=== PATIENT | female | born 1950 | race Caucasian/White ===

== ENCOUNTER 2023-03-31 12:08 | Inpatient (IN) | payer MEDICARE, BC, OTHER, SELFPAY ==
[2023-03-31] VITALS (17 sets, daily range): BP systolic 127–190; BP diastolic 43–101; PULSE 62–95; RESP 18–19; TEMP 36.4–37.1; O2SAT 94–100
--- NOTE | 2023-03-31 12:33 | DI.RAD_ITS ---
Exam(s) XR ANKLE LT 2V EXAM: XR ANKLE LT 2V CLINICAL HISTORY: L ankle deformity. TECHNIQUE: 2D digital imaging was performed. COMPARISON: No exams were available for comparison FINDINGS: Two views There is significantly displaced by malleolar fracture of the ankle. There may also be a subtle nond isplaced posterior malleolus fracture.. Talar dome appears intact. Fifth metatarsal base appears in tact. IMPRESSION: Severe by malleolar ankle fracture with significant displacement. Possible also nondisplaced posteri or malleolus fracture. DATA REPOSITORY: RADIATION DOSE DELIVERED:
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
--- NOTE | 2023-03-31 15:00 | DI.RAD_ITS ---
Exam(s) XR ANKLE LT COMPLETE EXAM: XR ANKLE LT COMPLETE CLINICAL HISTORY: FRACTURE S/P REDUCTION TECHNIQUE: 2D digital imaging was performed of the left ankle. Three images were obtained. AP, lat eral and oblique views were obtained. COMPARISON: CR XR ANKLE LT 2V from 03/31/2023 FINDINGS: BONES: There is again seen a bimalleolar fracture dislocation. There has been improvement of the pos terior dislocation component of the fracture however there is persistent lateral subluxation of the t alus relative to the tibia. There is also persistent lateral dislocation angulation of both the dist al fibular and medial malleolar fractures. No new fracture is identified. No bony destructive lesio n is seen. JOINTS:There is lateral subluxation of the talus relative to the tibia. SOFT TISSUE: There is soft tissue swelling about the ankle. IMPRESSION: Left ankle fracture dislocation as described. DATA REPOSITORY: RADIATION DOSE DELIVERED:
[2023-03-31] MEDS: Ondansetron 4 MG/2 ML VIAL IVP (15:01)
[2023-03-31] MEDS: Propofol 200 MG/20 ML VIAL 100 MG IVP (15:01)
[2023-03-31] MEDS: fentaNYL 100 MCG/2 ML VIAL 50 MCG IVP (15:02)
[2023-03-31 15:03] LABS: Abs Immature Grans 0.05 10^3/uL (0.0-0.06); Absolute Basophil Count 0.14 10^3/uL (0.0-0.2); Absolute Eosinophil Count 0.09 10^3/uL (0.0-0.7); Absolute Lymphocyte Count 1.59 10^3/uL (1.2-3.4); Absolute Monocyte Count 0.59 10^3/uL (0.1-0.8); Basophils % 1.1; Eosinophils % 0.7; HCT 44.5 % (36.0-46.0); HGB 14.4 g/dL (11.2-15.7); Immature Grans % 0.4; Lymphocytes % 12.2; MCH 28.3 pg (27.0-33.0); MCHC 32.4 % (32.0-36.0); MCV 87 fL (80-95); Monocytes % 4.5; Neutrophils % 81.1; RBC 5.09 10^6/uL (3.93-5.22); RDW 13.5 % (11.7-14.6); RDW-SD 43.8 fL; WBC 13.07 10^3/uL (4.4-10.8)
[2023-03-31 15:12] LABS: Prothrombin Time 10.1 sec (9.1-11.1)
[2023-03-31 15:16] LABS: ALT 30 U/L (14-59); AST 27 U/L (15-37); Alkaline Phosphatase 52 U/L (46-116); Anion Gap 8.6 mmol/L (3-11); BUN 20 mg/dL (7-18); Bilirubin, Total 0.5 mg/dL (0.2-1.0); CO2 26.4 mmol/L (21.0-32.0); Calcium 9.7 mg/dL (8.5-10.1); Chloride 106 mmol/L (98-107); Diff Comment PLT Morph Reviewed; Estimated GFR 59.49 (mL/min/1.73m2); Glucose 107 mg/dL (74-106); RBC Morphology Normal; Sodium 141 mmol/L (136-145); Total Protein 7.7 g/dL (6.4-8.2)
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
--- NOTE | 2023-03-31 15:26 | NUR.NOTE ---
Nursing Note: Patient signs consent for procedure. time out performed at 1450 with MD, PA, RT staff and this RN present. Medications given as ordered. Procedure lasted 9mins. Patient tolerated meds well. VS WNL at this time see chart.
--- NOTE | 2023-03-31 15:28 | RESPIRATORY ---
RT present for conscious sedation. NC w/EtCO2 monitoring placed on patient, ambu bag and nasal trumpet at bedside if needed. During procedure patient SpO2 98-100% on RA, RR 20, EtCO2 30-34 and HR 70.
[2023-03-31] MEDS: Propofol 200 MG/20 ML VIAL IVP (17:12)
--- NOTE | 2023-03-31 17:36 | DI.RAD_ITS ---
Exam(s) XR FLOURO OR C-ARM <1 HR EXAM: XR FLOURO OR C-ARM <1 HR CLINICAL HISTORY: ankle reduction TECHNIQUE: 2D and realtime digital imaging was performed. CONTRAST MATERIAL: Refer to procedure report. COMPARISON: CR XR ANKLE LT COMPLETE from 03/31/2023 FINDINGS: Fluoroscopy was provided for Dr. De La O during the performance of a left ankle reduction. Please re timo to the procedure report for complete details. Fluoroscopic images show successful reduction of t he left ankle fracture dislocation. Ka,r=0.03 mGy IMPRESSION: RADIATION DOSE DELIVERED:
--- NOTE | 2023-03-31 17:45 | DI.CT_ITS ---
Exam(s) CT LOWER EXTREMITY LT WO EXAM: CT LOWER EXTREMITY LT WO CLINICAL HISTORY: L ankle fracture dislocation, ?posterior tibia fx. TECHNIQUE: Imaging Protocol: Axial computed tomography images with coronal and sagittal reformatted images were created and reviewed. COMPARISON: CR XR ANKLE LT COMPLETE from 03/31/2023 CR XR FLOURO OR C-ARM <1 HR from 03/31/2023 CR XR ANKLE LT 2V from 03/31/2023 FINDINGS: Bones: There is a trimalleolar fracture present. There is a comminuted mildly displaced fracture of the posterior malleolus. There is an oblique fracture of the distal fibula at the level of the ankl e joint. There is posterior and lateral displacement of the distal fracture with overriding of the f racture fragments. There is a comminuted mildly displaced fracture of the medial malleolus. The fra cture is displaced 1/2 shaft's with laterally. There is lateral subluxation of the talus relative to the tibia. No cellulitic or osteomyelitic changes are identified. No lytic or sclerotic lesions ar e identified. Soft Tissues: There is soft tissue swelling present. IMPRESSION: There is a trimalleolar fracture of the left ankle. There is lateral subluxation of the talus relati ve to the tibia. RADIATION DOSE DELIVERED: 262.02mGy.cm Total DLP 262.02mGy.cm Total DLP DATA REPOSITORY: All CT scans at this facility are submitted to the National Radiology Data Registry (NRDR) Dose Index Registry (DIR) with the [employer] (A[employer]). RADIATION OPTIMIZATION: All CT scans at this facility use at least one of these dose optimization te chniques: automated exposure control; mA and/or kV adjustment per patient size (includes targeted exa ms where dose is matched to clinical indication); or iterative reconstruction.
--- NOTE | 2023-03-31 19:29 | DI.VRAD_ITS ---
PROCEDURE INFORMATION: Exam: CT Left Lower Extremity With Contrast, Ankle Exam date and time: 03/31/2023 6:51 PM Age: 72 years old Clinical indication: Injury or trauma; Fall; Fracture, traumatic; Other: L ankle fracture dislocation, ? posterior tibia FX; Left; Malleolus, lateral and malleolus, medial TECHNIQUE: Imaging protocol: CT of the left lower extremity with intravenous contrast was performed. Exam focused on the ankle. COMPARISON: CR XR ANKLE LT COMPLETE 03/31/2023 4:35 PM FINDINGS: Bones/joints: Trimalleolar ankle fracture. There is a displaced fracture of the medial malleolus with a transverse fracture plane at its base. There is a displaced oblique fracture of the distal fibular metaphysis. There is a posterior tibial malleolus fracture. There is medial subluxation of the tibia on the talus of 8 mm. There is no talar fracture evident. Calcaneus is unremarkable. Midfoot structures without acute traumatic disruption. Soft tissues: Soft tissue swelling. IMPRESSION: Trimalleolar fracture of the left ankle with subluxation of the tibia medially on the talus of 8 mm. Eversion injury fracture appearance with displaced oblique distal fibular fracture and transverse medial malleolar fracture. Posterior tibial malleolus mildly comminuted and mildly displaced fracture. Dictated and Authenticated by: Dev Franco MD. Ordering:SERGEI Trevino MD
[2023-03-31] MEDS: Acetaminophen 500 MG TAB 1000 MG PO (19:56)
[2023-03-31] MEDS: Normal Saline Flush 10 ML SYR IVP (19:56)
[2023-03-31] MEDS: traMADol 50 MG TAB PO (22:06)
[2023-04-01] VITALS (16 sets, daily range): BP systolic 118–162; BP diastolic 49–79; PULSE 66–82; RESP 14–20; TEMP 35.2–36.7; O2SAT 92–98; BMI 27.6
[2023-04-01] MEDS: Lactated Ringers 1,000 ML 80 ML IV (05:51)
[2023-04-01] MEDS: traMADol 50 MG TAB PO (06:18)
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
[2023-04-01] MEDS: Ondansetron 4 MG/2 ML VIAL IVP (09:51)
[2023-04-01] MEDS: Normal Saline Flush 10 ML SYR IVP (09:51)
--- NOTE | 2023-04-01 10:36 | W.ANESPRE ---
General Info Date of Service Date Performed: 04/01/23 Height: 5 ft 2 in Weight: 68.353 kg Body Mass Index (BMI): 27.6 Surgical Procedure: Operation Date: 04/01/23 13:40 Proposed Procedure Side Surgeon p Ankle ORIF Left Uriel Arora MD Meds Allergies and Home Medications Allergies Allergy/AdvReac Type Severity Reaction Status Date / Time Penicillins Allergy Severe rash Unverified 03/31/23 12:25 Home Medication Medication Instructions Recorded levothyroxine 50 mcg tablet 50 mcg PO DAILY 03/31/23 (Euthyrox) levothyroxine 75 mcg tablet 75 mcg PO DAILY 03/31/23 (Euthyrox) metformin 500 mg tablet 500 mg PO BID 03/31/23 simvastatin 40 mg tablet 40 mg PO DAILY 03/31/23 Current Visit Medications: Current Medications Generic Name Dose Route Start Last Admin Trade Name Freq PRN Reason Stop Dose Admin Acetaminophen 1,000 mg 03/31/23 20:00 04/01/23 09:52 Acetaminophen 500 Mg Tab PO Not Given TID [facility] Dextrose 0 gm 03/31/23 17:56 Glucose Oral Gel 15 Gm/37.5 Gm Tube PO DIRECTED PRN Dextrose/Water 0 gm 03/31/23 17:56 Dextrose 50%-Water 25 Gm/50 Ml Syr IVP DIRECTED PRN Hydromorphone HCl 0.5 mg 03/31/23 17:56 Hydromorphone 2 Mg/Ml Syr IVP Q2H PRN PRN Ringer's Solution 1,000 mls @ 80 mls/hr 04/01/23 06:00 04/01/23 05:51 IV 80 mls/hr INFUSION [facility] Administration Insulin Aspart 0 units 03/31/23 17:56 04/01/23 09:51 Insulin Aspart 300 Units/3 Ml Pen SC Not Given 0800,1200,1700 [facility] Protocol Levothyroxine Sodium 75 mcg 04/01/23 06:00 04/01/23 05:34 Levothyroxine 75 Mcg Tab PO Not Given DAILY@0600 [facility] Metformin HCl 500 mg 03/31/23 20:00 04/01/23 09:52 Metformin 500 Mg Tab PO Not Given BID [facility] Ondansetron HCl 4 mg 03/31/23 17:56 04/01/23 09:51 Ondansetron 4 Mg/2 Ml Vial IVP 4 mg Q6H PRN PRN Administration Nausea Simvastatin 20 mg 04/01/23 08:30 04/01/23 09:52 Simvastatin 20 Mg Tab PO Not Given DAILY [facility] Sodium Chloride 0 ml 03/31/23 20:00 04/01/23 09:51 Normal Saline Flush 10 Ml Syr IVP 10 ml BID [facility] Administration Tramadol HCl 50 mg 03/31/23 17:56 04/01/23 06:18 Tramadol 50 Mg Tab PO 50 mg Q4H PRN PRN Administration Pain PFSH Active Problems Active Problems: Problem Status Onset Code Closed fracture dislocation of left ankle S82.892A Vital Signs and Lab Results Vital Signs Most Recent Vital Signs in EMR: Most Recent Vital Signs Temp Pulse Resp BP Pulse Ox 36.5 C 66 16 162/72 H 98 04/01/23 07:12 04/01/23 07:12 04/01/23 07:12 04/01/23 07:12 04/01/23 07:12 Point of Care Results Point of Care Results: Finger Stick Blood Glucose 110 04/01/23 08:18 Lab Results 03/31/23 14:40 03/31/23 14:40 Blood Type / Crossmatch: Patient ABO/Rh A Negative 03/31/23 Antibody Screen NEGATIVE 03/31/23 Complete Blood Count: White Blood Count 13.07 10^3/uL (4.4-10.8) H 03/31/23 14:40 Red Blood Count 5.09 10^6/uL (3.93-5.22) 03/31/23 14:40 Hemoglobin 14.4 g/dL (11.2-15.7) 03/31/23 14:40 Hematocrit 44.5 % (36.0-46.0) 03/31/23 14:40 Platelet Count 10^3/uL (130-400) 03/31/23 14:40 Complete Metabolic Panel: Sodium 141 mmol/L (136-145) 03/31/23 14:40 Potassium 4.0 mmol/L (3.5-5.1) 03/31/23 14:40 Chloride 106 mmol/L (98-107) 03/31/23 14:40 Carbon Dioxide 26.4 mmol/L (21.0-32.0) 03/31/23 14:40 BUN 20 mg/dL (7-18) H 03/31/23 14:40 Creatinine 1.0 mg/dL (0.55-1.02) 03/31/23 14:40 Est GFR (CKD-EPI 2020) 59.49 (mL/min/1.73m2) 03/31/23 14:40 Calcium 9.7 mg/dL (8.5-10.1) 03/31/23 14:40 Albumin 4.0 g/dL (3.4-5.0) 03/31/23 14:40 Glucose 107 mg/dL (74-106) H 03/31/23 14:40 Liver Function Panel: Alanine Aminotransferase (ALT/SGPT) 30 U/L (14-59) 03/31/23 14:40 Aspartate Amino Transf (AST/SGOT) 27 U/L (15-37) 03/31/23 14:40 Coagulation Panel: INR International Normalized Ratio 1.0 (0.9-1.1) 03/31/23 14:40 Prothrombin Time 10.1 sec (9.1-11.1) 03/31/23 14:40 Cardiac Panel: No Data to Display Arterial Blood Gas: No Data to Display Venous Blood Gas: No Data to Display Pancreas Panel: No Data to Display Thyroid Panel: No Data to Display Infectious Disease: No Data to Display Blood Cultures: No Data to Display Toxicology Panel: No Data to Display Anesthesia Assessment and Plan Anesthesia History Personal History: PONV and Delayed Emergence Family History: No Family History of Anesthesia Complications Exercise Tolerance Exercise Tolerance: Metabolic Equivalents>4 Pertinent Negatives Pertinent Negatives: No Symptoms of GERD, No Major Cardiovascular Symptoms or Complaints, No Major Pulmonary Symptoms or Complaints and No History of CVA/TIA Cardiac & Pulmonary Exam Cardiac Exam: Normal S1/S2 Heart Sounds Pulmonary Exam: Clear Bilateral Breath Sounds Implantable Cardiac Device Does patient have a Pacemaker or an ICD?: No Airway Exam Known Difficult Airway: No Mallampati Class: 3 Mouth Opening: Narrow (< 3cm) Thyromental Distance: Less than 3 cm Neck Range of Motion: Full ROM Neck Circumference: Thick Teeth Condition: Normal Dentition ASA Classification ASA Score: ASA 2 Emergency Case?: No NPO Status NPO Status: NPO Clears >2 hours, Solids >8 hours Anesthesia Plan Resuscitation Status: Full Code Anesthesia Technique: General Anesthesia Airway Planned: Endotracheal Tube Pain Management: Surgeon and patient request nerve block Monitors Used: Standard Monitors Preoperative Comments:: 72 yo female with left ankle fracture to OR for ORIF. Sig PMHx: denies major cardiac/pulmonary, DM (on metformin, states it is pre), hypothyroid (stable on replacement). Pain is currently well controlled without movement, she is complaining of nausea and she is anxious.
--- NOTE | 2023-04-01 12:30 | NUR.NOTE ---
Pt Transfered to PACU via hospital bed prior to surgery. Report given to PACU nurse at 1225.
[2023-04-01] MEDS: ceFAZolin 2 GM/50 ML BAG IVPB (13:15)
--- NOTE | 2023-04-01 13:16 | PGE_ITS ---
Date of Service Date of service: 04/01/23 Time of Service: 07:20 Assessment and Plan Assessment and plan (1) Closed fracture dislocation of left ankle: Status: Acute Assessment and plan: Kalie is a 72-year-old who suffered a left ankle fracture dislocation. This is a highly unstable injury and needs surgical fixation. CT scan does show there is some fragmentation of the posterior malleolus. I will look at this during surgery although my intention would be to make sure there is no impinged fragments and not fix. This will be investigated during the surgery. I review ed the surgical details with Akira. I discussed the risks include bleeding, infection, pain, stiffness, damage to nerves and vessels, damage to muscle and tendons, hardware prominence, hardware failure, malunion, nonunion. Despite these risk, she elects to proceed. She has been NPO. Qualifiers: Encounter type: initial encounter Qualified Code(s): S82.892A - Other fracture of left lower leg, initial encounter for closed fracture Subjective Subjective Interval history since last seen: Kalie reports having some increase in pain last night as she was transferring off the CT scanner. She did take tramadol twice. She feels this helped out the pain but has left her somewhat feeling clouded and slightly nauseous. No acute changes otherwise. No fevers no chills. No chest pain or shortness of breath. Exam Narrative Exam Narrative: Sitting up in the hospital bed. No acute distress. Alert and x 3. Breathing comfort without audible wheezing or stress. Left lower extremities within the splint. Cap refill less than 2 seconds. Sensation intact to light touch over the deep and superficial peroneal nerve and tibial nerve. Objective Last Vital Signs Temp 36.6 C 04/01/23 12:12 Pulse 79 04/01/23 12:12 Resp 16 04/01/23 12:12 BP 147/76 H 04/01/23 12:12 Pulse Ox 97 04/01/23 12:12 Laboratory Results - last 24 hr 03/31/23 14:40 WBC 13.07 H RBC 5.09 Hgb 14.4 Hct 44.5 MCV 87 MCH 28.3 MCHC 32.4 RDW 13.5 Plt Count MPV Immature Gran % 0.4 Neutrophils % 81.1 Lymphocytes % 12.2 Monocytes % 4.5 Eosinophils % 0.7 Basophils % 1.1 Nucleated RBC % 0.0 Absolute Neutrophils 10.60 H Absolute Lymphocytes 1.59 Absolute Monocytes 0.59 Absolute Eosinophils 0.09 Absolute Basophils 0.14 RBC Morphology Normal PT 10.1 INR 1.0 Sodium 141 Potassium 4.0 Chloride 106 Carbon Dioxide 26.4 Anion Gap 8.6 BUN 20 H Creatinine 1.0 Est GFR (CKD-EPI 2020) 59.49 Glucose 107 H Calcium 9.7 Total Bilirubin 0.5 AST 27 ALT 30 Alkaline Phosphatase 52 Total Protein 7.7 Albumin 4.0 Patient ABO/Rh A Negative Antibody Screen NEGATIVE Objective Narrative Objective Narrative: CT scan of the left ankle shows a slightly laterally displaced talus. There is a transverse type fracture about the medial malleolus which is displaced into the joint with some small fragmentation seen over the anteromedial corner of the joint. There is also a posterior malleolar fracture with some comminution. The fibula is shortened and laterally displaced with a oblique fracture line, Gennaro Bertrand. Time Spent with Patient Time Spent with Patient: <25 minutes Time was spent: obtaining and/or reviewing separately otained hiistory and counseling the patient
[2023-04-01] MEDS: Normal Saline 100 ML 360 ML (13:37)
[2023-04-01] MEDS: Tranexamic Acid 1,000 MG/10 ML VIAL 1000 MG (13:37)
--- NOTE | 2023-04-01 13:58 | W.ANESNERVE ---
Nerve Block Single Injection Procedure Date and Time Date Performed: 04/01/23 Procedure Start: 12:54 Location Where Procedure Performed Procedure Location: PACU Reason Performed: Postoperative Analgesia Requesting Provider: Uriel Arora Timeout Performed Timeout Performed: Yes Monitoring Used ECG, Blood Pressure and SpO2 Sterility Sterility: Hand Hygiene, Surgical Cap, Surgical Mask, Sterile Gloves and Chlorhexidine Sedation Given During Procedure Sedation Given (Indicate Dose Given): Versed IV Dose:: 2mg Patient Mental Status Patient Mental Status: Sedate with meaningful communication Nerve Block 1st Nerve Block: Laterality: Left Block Type: Adductor Canal Ultrasound Image Saved?: Yes Needle / Catheter Used: 100mm SonoPlex II Local Anesthetic Bolus (Indicate Dose Given): Lidocaine used for local infiltration of skin and Bupivacaine 0.25% Dose:: 10mL Additives (Indicate Dose Given): None Ultrasound: Sterile probe cover and gel used Nerve Stimulator: Supplement to Ultrasound use and No twitch or parasthesia noted < 0.5 mA Paresthesia: None Procedure Tolerated: No Complications and Patient tolerated well Procedure Outcome: Successful Performed By: Zo Russ Supervised By: Kvng Bae 2nd Nerve Block: Laterality: Left Block Type: Popliteal Sciatic Ultrasound Image Saved?: Yes Needle / Catheter Used: 100mm SonoPlex II Local Anesthetic Bolus (Indicate Dose Given): Lidocaine used for local infiltration of skin Additives (Indicate Dose Given): None Ultrasound: Sterile probe cover and gel used Nerve Stimulator: Supplement to Ultrasound use and No twitch or parasthesia noted < 0.5 mA Paresthesia: None Procedure Tolerated: No Complications and Patient tolerated well Procedure Outcome: Successful Performed By: Kvng Bae
--- NOTE | 2023-04-01 14:29 | CHAPLAIN ---
Kalie was sitting up in bed when I visited. She told me about her fall and broken ankle requiring surgery later today. She was she was anxious as she waits for her surgery, but knew that when her arrives she'll feel more calm. She is from [place], but has a second home here. She was expecting her son and any time.
--- NOTE | 2023-04-01 14:30 | DI.RAD_ITS ---
Exam(s) XR ANKLE LT 2V EXAM: XR ANKLE LT 2V CLINICAL HISTORY: LEFT ANKLE FRACUTRE TECHNIQUE: 2D and realtime digital imaging was performed. CONTRAST MATERIAL: Refer to procedure report. COMPARISON: CR XR ANKLE LT COMPLETE from 03/31/[address] LOWER EXTREMITY LT WO from 03/31/2023 CR XR ANKLE LT 2V from 03/31/2023 FINDINGS: Fluoroscopy was provided for Dr. Arora during the performance of a reduction and internal fixatio n of the left ankle fracture dislocation. Please refer to the procedure report for complete details. Ka,r=1.15 mGy IMPRESSION: RADIATION DOSE DELIVERED:
--- NOTE | 2023-04-01 14:52 | W.PM.OP ---
Date of service: 04/01/23 Time of Service: 13:30 Operative Note Operative Note DATE OF PROCEDURE: 04/01/23 PRE-OP DIAGNOSIS: Left Ankle Fracture-Dislocation POST-OP DIAGNOSIS: same PROCEDURE: Open Reduction and Internal Fixation of Left Ankle Fracture Dislocation (Medial AND Lateral Malleoli) SURGEON: Uriel Arora CHIEF TECHNICIAN: Tatum Gar ANESTHESIA TYPE: General LMA/ETT and Primary Nerve Block Refer to Anesthesia Record ESTIMATED BLOOD LOSS: 100 PATHOLOGY: none sent TOURNIQUET TIME: 0 COMPLICATIONS: None Patient was transported to: PACU Patient's condition: stable Indications: Kalie is a 72-year-old female who suffered an ankle fracture dislocation by her left ankle yesterday while slipping on the ice. Interval reduction was performed emergency department and due to the instability of the fracture I recommended operative stabilization and fixation. I reviewed the surgery with her. I discussed the risk to include bleeding, infection, pain, stiffness, damage to nerves and vessels, damage to muscle and tendons, hardware prominence, hardware failure, malunion, nonunion, instability, worsening arthritis, blood clot. Despite these risk, she elects to proceed. Findings: There is a significantly displaced fracture about the medial malleolus and the lateral malleolus. The bone quality of the lateral malleolus was quite poor. Fracture was open, joint irrigated any debris, and fracture reduced utilizing a one third tubular plate laterally along with 4 oh millimeter cannulated screws medially. Initial lag screw was placed but the purchase quality in the bone was quite poor and therefore it was removed. Procedure Description: Kalie was greeted in the preoperative holding area. Her identity is confirmed the correct site is identified and marked. The consent was previously performed upstairs. Adductor and popliteal block was performed in the PACU. She is in takeback to the operating room placed in supine position on the operating table. Left leg is placed onto a bone foam ramp. General anesthesia was administered. Prophylactic and biotics in the form of cefazolin were given along with 1 g of tranexamic acid. The left leg was then prepped ChloraPrep and draped in a standard fashion. A timeout was performed for safe surgery. A medial based incision was made first. This was an approximately 4 cm incision longitudinally over the medial malleolus just posterior to an area of skin thinning from the fracture deformity. There was no break in the skin. This incision was taken down sharply to the skin and there is a clear defect of the deeper tissues where the fracture was easily identifiable. Periosteum at the fracture level was resected back a few millimeters for fracture visualization. A lamina client technical support associate was placed within the fracture and irrigation was performed of the fracture area and the joint. There was some loose pieces of bone seen mostly posteriorly. These were removed. There was an area of cartilage which was thinly attached a small piece of bone posteriorly which seem to be attached to the remnant of the posterior tibia and therefore this was left in place. The joint was thoroughly irrigated. The lamina client technical support associate was removed and attention was turned to the lateral side of the ankle. A longitudinal incision was made overlying the distal fibula. This was taken down sharply to the skin. Blunt dissection was carried of the deep tissues and the fracture was easily identifiable. There is already a defect of the fascia in this area. Subperiosteal ovation was performed with a stearns elevator. The fracture was a short oblique fracture with a posterior tail moving proximally. The fracture edges were debrided and the fracture was reduced and held with a lobster-claw. However, the bone quality was quite soft. The clamp was causing some indentation to the posterior border of the fibula. However, this did hold the reduction nearly anatomic. A lag screw was placed by over drilling the near cortex with a 3.5 mm drill and then completing the screw path with a 2.5 mm drill. An appropriately sized screw was placed however there is very minimal purchase with this screw. It was left in place as I did hold the reduction. X-ray confirmed appropriate reduction and length of the fibula. Direct inspection of the fracture showed near anatomic reduction. Therefore proceeded with a one third tubular plate over the fibula. The plate was contoured to fit the distal fibula. It was then fitted to the bone and x-ray was used to confirm appropriate position of the plate. The plate was secured to the fibula using a single 3.5 mm nonlocking screw proximal to the fracture site. With this in position the plate was held appropriately position and 2 locking screws were placed distally. Additional two 3.5 mm nonlocking screws were placed proximally within the plate. The lag screw which was placed previously was grossly loose at this point. I tried to redirect the screw path but there still was notable softness to the bone posteriorly and would not adequately hold screw, therefore the lag screw was removed. Attention was turned to the medial side of the ankle. With direct visualization the medial malleolus was reduced and held with a dental pick. A K wire from the 4.0 mm cannulated screw system was selected and placed across the fracture through the medial malleolus and into the distal tibia. 2 pins were placed. X-ray showed appropriate positioning and adequate reduction of the medial malleolus. I then placed two 4.0 mm cannulated screws, 1 at a time. These had good purchase, more posteriorly than anteriorly. The medial release was stable. Once again the wound was irrigated. The deep tissues were injected with 0.25% bupivacaine with epinephrine. Final x-rays were obtained. Stress view was also obtained which showed no widening of the mortise. The deep tissue around the lateral site was closed with 0 Vicryl. Skin subcutaneous layers medially and laterally were closed with a 2-0 and 3-0 Vicryl. The skin was closed with 4-0 nylon. A posterior slab splint was then applied after dressing the wounds with Xeroform, 4 x 4's, ABD and Webril. At the end the case all counts were correct. She tolerated procedure well transferred back to the PACU in stable condition. She will be nonweightbearing on the left lower extremity. Admit back to the medical surgical floor to work with physical therapy with likely discharge tomorrow.
--- NOTE | 2023-04-01 15:29 | W.ANESPOSTOP ---
Postoperative Evaluation Date, Time and Location Date Performed: 04/01/23 Time Performed: 15:26 Patient Location: PACU Vital Signs Most Recent Imported Vital Signs: Most Recent Vital Signs Temp Pulse Resp BP Pulse Ox 36.5 C 77 19 135/65 93 04/01/23 15:23 04/01/23 15:23 04/01/23 15:23 04/01/23 15:23 04/01/23 15:23 Pain Score Most Recent Pain Score: Most Recent Pain Score Pain Level 0 04/01/23 15:23 Assessment Mental Status: Awake (Alert & Oriented to Patient Baseline) Airway and Respiratory Function: Patent airway with normal (patient baseline) respiratory exam Cardiovascular Function: Hemodynamically Stable Hydration Status: Adequately Hydrated Nausea & Vomiting: No Nausea or Vomiting Pain: Pt. Denies Any Pain Peripheral Nerve Block: Regional nerve block not resolved at time of post operative discharge
[2023-04-01] MEDS: metFORMIN 500 MG TAB PO (18:06)
[2023-04-01] MEDS: ceFAZolin 1 GM/50 ML BAG IVPB (18:06)
[2023-04-01] MEDS: Aspirin E.C. 81 MG TABEC PO (19:58)
[2023-04-01] MEDS: Celecoxib 200 MG CAP PO (19:58)
[2023-04-02] MEDS: ceFAZolin 1 GM/50 ML BAG IVPB ×2 (01:43→09:36)
[2023-04-02 02:03] VITALS: BP 115/60; PULSE 71; RESP 16; TEMP 36.7; O2SAT 95
[2023-04-02] MEDS: Levothyroxine 75 MCG TAB PO (06:23)
[2023-04-02 07:29] VITALS: BP 148/73; PULSE 71; RESP 16; TEMP 36.7; O2SAT 98
--- NOTE | 2023-04-02 08:40 | PT.INIE ---
PT Notes Visit Reasons: left ankle fracture dislocation Inpatient Physical Therapy Evaluation Date: 04/02/23 in at 715 am Referring Doctor: Amish Arora MD PT Orders: PT CONSULT: s/p ortho surgery Precautions:NWB L LE Patient Profile/Admitting Diagnosis: Patient is a 72 yo female adm 03/31/23 with left ankle fracture with dislocation s/p fall on the ice. S/P surgery 04/01/23. She lives on [address] but has a home in [facility] where she is able to stay on one level. She has 3 steps with two rails to enter. Spouse and son will be able to assist upon discharge. Has a walk in shower with a bench and her bathroom is very close by her bed for night time. PMHX: prediabetes, hypothyroidism,patient reports 11 surgeries in the past, but no information in chart. Subjective: Patient reports no pain upon arrival or during treatment. Objective: Issued rolling walker and instructed in its use. Recommended knee scooter. Instructed in NWB status, keeping pain well managed, pausing with transfers/mobility, options for assistive devices. Toileting and hand washing at since with cuing and cga for balance only. Performed right ankle pumps x 10, quad and glut sets x 10, heel slides, hip abd, SLR x 10 AROM bilterally. Discussed performing as able at home to keep muscles activates, prevent atrophy and assist with edema managment. Mental Status: Patient is alert and oriented. Pain: No pain at rest or with activity Vital Signs: 729 am by BOTANICAL TECHNICAL OFFICER 148/73, 71 bpm, 98% on RA ROM/Strength: Able to move bilateral and right LE against gravity without pain or deficits noted. Able to perform active SLR bilaterally. Sensation: No reports of numbness or tingling Soft tissue/edema: Splint on left LE Bed Mobility: Supine to sit supervision. Transfers: Sit to/from stand 3x with cga and cuing for hand placement. Correct hand placement 2/3 of transfers. Gait: Ambulated 10, 12, 20, 20, 5, 5 feet with rolling walker NWB left LE with cuing for sequencing. Balance: Able to stand on right LE with walker for balance with cga. [facility] AM-PAC 6 clicks Basic Mobility Inpatient Short Form: Raw Score:???18? CMS Score: 46.58% Informed Consent/Education:? Patient instructed in purpose of PT consult and plan of care and is agreeable Assessment:? Patient is a?72 year old female adm on 03/31/23 for left ankle fracture dislocation s/p surgery 04/01/23.? Patient presents with pain, decreased strength, decreased functional mobility, decreased balance and difficulty with ambulation. The patient is now able to mobilize as needed for home and has had equipment needs met. No additional inpatient PT needs at this time. Patient is assessed as:? Low 90327?? complexity based on the following: History: age Examination: see above Presentation: Stable and uncomplicated? Decision Making:? Low (0 history, 1-2 exam, stable/predictable, easy 20) Physical Therapy Goals: 1 session Able to get in/out of bed with supervision only:met Able to perform sit to/from stand with supervision only: met Able to 20 walk feet with rolling walker NWB L with supervision/cga: met Able to go up and down 2 steps with 2 rail with contact guard assist : met Independent with home exercise program: Met Plan of Care/Treatment Plan: 1 session only of strengthening, bed mobility, transfers, gait, stairs, balance training, use of assistive device. DISCHARGE RECOMMENDATIONS: Mobilize with assist initially, obtain knee scooter Billing Charges: Treatment Units Time Duration Manual Therapy(55257) Hands-on techniques to modulate pain increase joint range of motion reduce or eliminate soft tissue swelling, inflammation, or restriction facilitate relaxation and improve contractile and non-contractile tissue extensibility ? ? Therapeutic Procedures (81430) Instruction in therapeutic exercises to develop strength and endurance, range of motion and flexibility. HEP instruction and review: Provided skilled instruction in proper exercise performance: Provided skilled manual cues to facilitate proper muscle recruitment and/or movement pattern 1 10 Neurological Re-Education(44307) To improve balance, coordination, kinesthetic and proprioceptive sensations. ? ? Ultrasound(46956) To promote healing. ? ? Gait Training(84133) ?1 ?20 Therapeutic Activity(41176) Instruction in dynamic activities with one on one patient contact by the provider to improve functional performance as follows: ?3 ?40 Self Care Training(05837) ? ? E-Stim (Attended)(80704) ? ? Low IE(55635) 1 15 Mod IE(68157) ? ? High IE(30535) ? ? Time Coded Treatment Time ? 70 Total Treatment Time ? 85 Please sign an return this page within 30 days if you agree with the above POC. Thank you! Physician Signature [facility]
[2023-04-02] MEDS: Simvastatin 20 MG TAB PO (08:48)
[2023-04-02] MEDS: Aspirin E.C. 81 MG TABEC PO (08:48)
[2023-04-02] MEDS: Celecoxib 200 MG CAP PO (08:49)
[2023-04-02] MEDS: traMADol 50 MG TAB PO (08:49)
[2023-04-02] MEDS: metFORMIN 500 MG TAB PO (08:49)
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
--- NOTE | 2023-04-02 13:43 | CMDISCH_ITS ---
Date of service: 04/02/23 Time of Service: 13:43 LACE Index Scoring Tool Questions: Length of Stay (in days): 2 Was the patient admitted via the E.D.?: Yes E.D. Visits: 1 Answers: Total Score: 6 Risk of Readmission: Low Risk Care Management Discharge Plan Reason for Hospitalization: fractured left ankle Discharge Plan: Kalie will be discharged home with no new services. She will follow up with her community providers locally and in [place] and transport with family. Patient/Family Education Needs: Review of discharge instructions, activity, limitations, follow up plan, discuss [facility] Related Social Needs: No Data to Display
== END 2023-04-02 12:32 | disposition home or self-care (01) | DRG 494 ==
LOC: ER 15:31 → MS 17:47
PROVIDERS: Admitting Provider Student in an Organized Health Care Education/Training Program; Emergency Provider Emergency Medicine; Visit Provider Student in an Organized Health Care Education/Training Program
PROC: 0QSK04Z Reposition Left Fibula with Internal Fixation Device, Open Approach (ICD-10-PCS; CPT 27814; principal; 2023-04-01 13:30)
DX: S82.842A Displaced bimalleolar fracture of left lower leg, initial encounter for closed fracture (principal); E11.9 Type 2 diabetes mellitus without complications; E03.9 Hypothyroidism, unspecified; Z79.84 Long term (current) use of oral hypoglycemic drugs; W00.0XXA Fall on same level due to ice and snow, initial encounter
CPT/HCPCS: 27810; 27814; 76000; 76942; 80053; 86850; 86900; 86901; 96374; 96375; 96376; 97110; 97116; 97161; 97530; 99285; 73600; 73610; 73700; 85025; 85610; J0131; J0665; J0690; J1100; J1815; J1885; J2001; J2250; J2371; J2405; J2704; J3010

== ENCOUNTER 2023-04-14 14:55 | Outpatient (CLI) | payer MEDICARE, BC, OTHER, SELFPAY ==
--- NOTE | 2023-04-14 14:28 | DI.RAD_ITS ---
Exam(s) XR ANKLE LT COMPLETE EXAM: XR ANKLE LT COMPLETE CLINICAL HISTORY: F/U LEFT ANKLE ORIF TECHNIQUE: 2D digital imaging was performed. Three views. COMPARISON: XA XR ANKLE LT 2V from 04/01/2023 FINDINGS: BONES: There has been no change in the alignment of the hardware in the malleoli. There has been no change in fracture alignment. No bony destructive lesion is seen. JOINTS:The ankle mortise is normally aligned. SOFT TISSUE: Swelling. IMPRESSION: Stable fracture and hardware alignment. DATA REPOSITORY: RADIATION DOSE DELIVERED:
== END 2023-04-14 14:56 | disposition home or self-care (01) ==
LOC: DIORS 14:55
PROVIDERS: Visit Provider Physician Assistant
DX: S82.892D Other fracture of left lower leg, subsequent encounter for closed fracture with routine healing; X58.XXXD Exposure to other specified factors, subsequent encounter
CPT/HCPCS: 73610

== ENCOUNTER 2023-05-12 15:05 | Outpatient (CLI) | payer MEDICARE, BC, OTHER, SELFPAY ==
--- NOTE | 2023-05-12 13:00 | DI.RAD_ITS ---
Exam(s) XR ANKLE LT COMPLETE EXAM: XR ANKLE LT COMPLETE CLINICAL HISTORY: F/U ANKLE ORIF. TECHNIQUE: 2D digital imaging was performed. Three images were obtained. AP, lateral and oblique vi ews were obtained. COMPARISON: CR XR ANKLE LT COMPLETE from 04/14/2023 FINDINGS: BONES: There are stable post operative changes present. There is stable internal fixation of the dis baldemar fibular and tibial fractures. The fracture lines are still visualized. No new fracture or dislo cation. JOINTS: The joint spaces are well maintained. SOFT TISSUE: There is soft tissue swelling of the left ankle. IMPRESSION: Stable postoperative changes. DATA REPOSITORY: RADIATION DOSE DELIVERED:
== END 2023-05-12 15:06 | disposition home or self-care (01) ==
LOC: DIORS 15:05
PROVIDERS: Visit Provider Student in an Organized Health Care Education/Training Program
DX: S82.892D Other fracture of left lower leg, subsequent encounter for closed fracture with routine healing (principal); X58.XXXD Exposure to other specified factors, subsequent encounter
CPT/HCPCS: 73610

== ENCOUNTER 2023-06-23 15:48 | Outpatient (CLI) | payer MEDICARE, BC, OTHER, SELFPAY ==
--- NOTE | 2023-06-23 13:54 | DI.RAD_ITS ---
Exam(s) XR ANKLE LT COMPLETE EXAM: XR ANKLE LT COMPLETE CLINICAL HISTORY: f/u ORIF L ankle TECHNIQUE: 2D digital imaging was performed. Three views. COMPARISON: CR XR ANKLE LT COMPLETE from 05/12/2023 FINDINGS: BONES: There has been no change in the alignment of the hardware in the medial and lateral malleoli. There has been increased healing at the fracture sites. No bony destructive lesion is seen. JOINTS:The ankle mortise is normally aligned. SOFT TISSUE: Soft tissue swelling remains present. IMPRESSION: Increased fracture healing. DATA REPOSITORY: RADIATION DOSE DELIVERED:
== END 2023-06-23 15:49 | disposition home or self-care (01) ==
LOC: DIORS 15:48
PROVIDERS: Visit Provider Student in an Organized Health Care Education/Training Program
DX: S82.892D Other fracture of left lower leg, subsequent encounter for closed fracture with routine healing (principal); X58.XXXD Exposure to other specified factors, subsequent encounter
CPT/HCPCS: 73610

== ENCOUNTER 2023-08-18 14:35 | Outpatient (CLI) | payer MEDICARE, BC, OTHER, SELFPAY ==
--- NOTE | 2023-08-18 10:30 | DI.RAD_ITS ---
Exam(s) XR ANKLE LT COMPLETE EXAM: XR ANKLE LT COMPLETE CLINICAL HISTORY: F/U FRACTURE. TECHNIQUE: 2D digital imaging was performed. Three images were obtained. AP, lateral and oblique vi ews were obtained. COMPARISON: CR XR ANKLE LT COMPLETE from 06/23/2023 FINDINGS: BONES: There are stable post operative changes present. The fracture lines are less well visualized. Components of the medial malleolar fracture can still be seen. No new fracture or dislocation. JOINTS: The joint spaces are well maintained. SOFT TISSUE: There is soft tissue swelling around the ankle. IMPRESSION: Stable postoperative changes. DATA REPOSITORY: RADIATION DOSE DELIVERED:
== END 2023-08-18 14:36 | disposition home or self-care (01) ==
LOC: DIORS 14:35
PROVIDERS: Visit Provider Student in an Organized Health Care Education/Training Program
DX: S82.892D Other fracture of left lower leg, subsequent encounter for closed fracture with routine healing (principal); X58.XXXD Exposure to other specified factors, subsequent encounter
CPT/HCPCS: 99213; 73610